=== PATIENT | female | born 1945 | race Caucasian/White ===

== ENCOUNTER 2023-08-11 11:58 | Inpatient (IN) | payer MEDICARE ==
[2023-08-11] VITALS (9 sets, daily range): BP systolic 129–197; BP diastolic 69–118; PULSE 68–88; RESP 15–22; TEMP 97.9; O2SAT 94–98
[~2023-08-11] VITALS: Ht 170.2 cm; Wt 59.5 kg
[2023-08-11] MEDS ORDERED: potassium Cl 20 mEq SR tablet PO ONE (12:20)
[2023-08-11] MEDS ORDERED: potassium CL 10mEq/100ml bag 100 ML IV ONE (12:20)
[2023-08-11] MEDS ORDERED: magnesium 2GM in 50ml NS 50 ML IV ONE (12:20)
[2023-08-11] MEDS ORDERED: magnesium hydroxide 30ml (MOM) UD suspension PO PRN (13:15)
[2023-08-11] MEDS ORDERED: potassium Cl 20 mEq SR tablet PO PRN ×4 (13:15→14:40)
[2023-08-11] MEDS ORDERED: morphine 2 MG/ML inj. syringe IV PRN ×2 (13:15)
[2023-08-11] MEDS ORDERED: potassium Cl 40MEQ/1/2NS 520ml 520 ML IV PRN ×3 (13:15→14:40)
[2023-08-11] MEDS ORDERED: magnesium Cl slow-release 64mg tablet PO PRN (13:15)
[2023-08-11] MEDS ORDERED: ondansetron/PF 4mg/2ml inj IV PRN (13:15)
[2023-08-11] MEDS ORDERED: mag hydrox/Alum hydrox/simeth 30ml oral suspension PO PRN (13:15)
[2023-08-11] MEDS ORDERED: magnesium 2GM in 50ml NS 50 ML IV PRN (13:15)
[2023-08-11] MEDS ORDERED: magnesium 4gm in 100ml NS 100 ML IV PRN (13:15)
[2023-08-11 13:38] LABS: HEMOGLOBIN 11.1 g/dl (12.0-16.0); MEAN CORPUSCULAR HGB CONC 34.2 g/dL (33.0-36.5); MEAN PLATELET VOLUME 9.5 FL (7.4-10.4); RED BLOOD COUNT 3.45 X10'6 (4.20-5.60)
[2023-08-11 13:39] LABS: HEMATOCRIT 32.4 % (35.0-45.0); MEAN CORPUSCULAR HEMOGLOBIN 32.2 PG (27.0-31.0); MEAN CORPUSCULAR VOLUME 94.1 FL (78-98); PLATELET COUNT 248 X10'3 (140-440); RED CELL DISTRIBUTION WIDTH 22.6 % (11.5-14.5); WHITE BLOOD COUNT 10.4 X10'3 (4.5-11.0)
[2023-08-11 13:50] LABS: APTT 30 SECONDS (22-32); INR 1.1 INR; PROTHROMBIN TIME 11.8 SECONDS (9.0-12.0)
[2023-08-11 14:06] LABS: ALANINE AMINOTRANSFERASE 260 U/L (12-78); ALBUMIN 2.2 G/DL (3.4-5.0); ANION GAP 8 (8-16); BLOOD UREA NITROGEN 6 MG/DL (7-18); BUN/CREATININE RATIO 9.4 (10.0-20.0); CHLORIDE 99 MMOL/L (99-107); CREATININE 0.64 MG/DL (0.40-0.90); SODIUM 135 MMOL/L (135-145); TOTAL CARBON DIOXIDE 28.2 MMOL/L (24-32); eCRCL 69 ML/MIN; eGFR 90 ML/MIN
[2023-08-11 14:08] LABS: BILIRUBIN,TOTAL 35.6 MG/DL (0.1-1.0); GLUCOSE 174 MG/DL (70-104); LIPASE 38 U/L (16-77); MAGNESIUM 1.9 MG/DL (1.5-2.4)
[2023-08-11 14:10] LABS: ANISOCYTOSIS 3+; PLATELET ESTIMATE NORMAL; TOTAL CELLS COUNTED 100
[2023-08-11 14:11] LABS: STOMATOCYTES 3+; TARGET CELLS FEW
[2023-08-11 14:19] LABS: ALKALINE PHOSPHATASE 681 IU/L (46-116); ASPARTATE AMINO TRANSFERASE 165 U/L (10-37)
[2023-08-11 14:21] LABS: ALBUMIN/GLOBULIN RATIO 0.7 (1.1-1.5); TOTAL PROTEIN 5.5 G/DL (6.4-8.2)
[2023-08-11] MEDS ORDERED: diphenhydrAMINE 50 mg/ml inj ONE (14:56)
[2023-08-11] MEDS ORDERED: fentaNYL/PF 50MCG/1 ML 2ML syringe ONE (14:56)
[2023-08-11] MEDS ORDERED: MIDAZolam 1 MG/ML 5ML VIAL ONE (14:56)
[2023-08-11] MEDS ORDERED: glucagon, human recombinant 1mg kit ONE (14:56)
[2023-08-11] MEDS ORDERED: iohexol 300mg/ml 100ml inj. ONE (14:57)
[2023-08-11] MEDS ORDERED: LIDOcaine Viscous 15ml cup ONE (14:57)
[2023-08-11] MEDS ORDERED: proCHLORperazine 10 MG/2 ml inj ONE (15:28)
[2023-08-11] MEDS: docusate sod 100mg capsule PO SCH (20:00)
[2023-08-11] MEDS: K and/or MAG REPLACEMENT MC SCH (20:00)
[2023-08-11] MEDS ORDERED: K and/or MAG REPLACEMENT MC SCH (20:00)
[2023-08-11] MEDS ORDERED: NO HOME MEDS (23:59)
[2023-08-12 01:46] VITALS: BP 162/77; PULSE 75; RESP 18; TEMP 98; O2SAT 97
[2023-08-12 06:45] VITALS: BP 136/83; PULSE 60; RESP 16; TEMP 98.1; O2SAT 99
[2023-08-12 07:02] LABS: APTT 30 SECONDS (22-32); INR 1.1 INR; PROTHROMBIN TIME 11.9 SECONDS (9.0-12.0)
[2023-08-12 07:11] LABS: HEMATOCRIT 28.1 % (35.0-45.0); HEMOGLOBIN 9.9 g/dl (12.0-16.0); MEAN CORPUSCULAR HEMOGLOBIN 32.9 PG (27.0-31.0); MEAN CORPUSCULAR VOLUME 93.8 FL (78-98); PLATELET COUNT 219 X10'3 (140-440); RED CELL DISTRIBUTION WIDTH 21.8 % (11.5-14.5)
[2023-08-12 07:17] LABS: ALANINE AMINOTRANSFERASE 224 U/L (12-78); ALBUMIN 1.9 G/DL (3.4-5.0); ALKALINE PHOSPHATASE 653 IU/L (46-116); ANION GAP 8 (8-16); BLOOD UREA NITROGEN 9 MG/DL (7-18); BUN/CREATININE RATIO 12.5 (10.0-20.0); CALCIUM 8.3 MG/DL (8.5-10.1); CHLORIDE 102 MMOL/L (99-107); CREATININE 0.72 MG/DL (0.40-0.90); SODIUM 137 MMOL/L (135-145); TOTAL CARBON DIOXIDE 27.2 MMOL/L (24-32); eCRCL 62 ML/MIN; eGFR 79 ML/MIN
[2023-08-12 07:19] LABS: BILIRUBIN,TOTAL 31.8 MG/DL (0.1-1.0); GLUCOSE 149 MG/DL (70-104); MAGNESIUM 2.3 MG/DL (1.5-2.4)
[2023-08-12 07:30] LABS: ASPARTATE AMINO TRANSFERASE 167 U/L (10-37)
[2023-08-12 07:34] LABS: ALBUMIN/GLOBULIN RATIO 0.7 (1.1-1.5); POTASSIUM 2.6 MMOL/L (3.5-5.1); TOTAL PROTEIN 4.6 G/DL (6.4-8.2)
[2023-08-12 07:48] LABS: PLATELET ESTIMATE NORMAL; TOTAL CELLS COUNTED 100
[2023-08-12 07:49] LABS: ANISOCYTOSIS 3+; STOMATOCYTES 3+; TARGET CELLS FEW
[2023-08-12 08:00] VITALS: RESP 16; O2SAT 96; O2SAT 97
[2023-08-12] MEDS: docusate sod 100mg capsule PO SCH ×2 (08:00→20:00)
[2023-08-12] MEDS: K and/or MAG REPLACEMENT MC SCH (08:00)
[2023-08-12] MEDS ORDERED: mag hydrox/Alum hydrox/simeth 30ml oral suspension PO PRN (11:50)
[2023-08-12 18:00] VITALS: BP 176/69; PULSE 84; RESP 16; TEMP 98.5; O2SAT 97
[2023-08-12 22:00] VITALS: BP 181/73; PULSE 83; RESP 17; TEMP 97.7; O2SAT 95
[2023-08-13 06:00] VITALS: BP 147/56; PULSE 71; RESP 17; TEMP 98; O2SAT 97
[2023-08-13 07:08] LABS: HEMOGLOBIN 9.7 g/dl (12.0-16.0); MEAN CORPUSCULAR HGB CONC 35.2 g/dL (33.0-36.5); RED BLOOD COUNT 2.94 X10'6 (4.20-5.60); WHITE BLOOD COUNT 9.4 X10'3 (4.5-11.0)
[2023-08-13 07:11] LABS: APTT 30 SECONDS (22-32); HEMATOCRIT 27.6 % (35.0-45.0); INR 1.2 INR; MEAN CORPUSCULAR VOLUME 93.7 FL (78-98); PLATELET COUNT 223 X10'3 (140-440); PROTHROMBIN TIME 12.4 SECONDS (9.0-12.0); RED CELL DISTRIBUTION WIDTH 21.2 % (11.5-14.5)
[2023-08-13 07:30] LABS: ALANINE AMINOTRANSFERASE 218 U/L (12-78); ALBUMIN 1.8 G/DL (3.4-5.0); ALKALINE PHOSPHATASE 698 IU/L (46-116); ANION GAP 8 (8-16); BLOOD UREA NITROGEN 9 MG/DL (7-18); CALCIUM 8.2 MG/DL (8.5-10.1); CHLORIDE 99 MMOL/L (99-107); SODIUM 136 MMOL/L (135-145); TOTAL CARBON DIOXIDE 29.1 MMOL/L (24-32)
[2023-08-13 07:48] LABS: ALBUMIN/GLOBULIN RATIO 0.5 (1.1-1.5); ASPARTATE AMINO TRANSFERASE 189 U/L (10-37); BILIRUBIN,TOTAL 31.2 MG/DL (0.1-1.0); BUN/CREATININE RATIO 14.1 (10.0-20.0); CREATININE 0.64 MG/DL (0.40-0.90); GLUCOSE 213 MG/DL (70-104); PHOSPHORUS 1.5 MG/DL (2.3-4.5); TOTAL PROTEIN 5.3 G/DL (6.4-8.2); eCRCL 69 ML/MIN; eGFR 90 ML/MIN
[2023-08-13 07:53] LABS: POTASSIUM 2.5 MMOL/L (3.5-5.1)
[2023-08-13 08:00] VITALS: RESP 17; O2SAT 97
[2023-08-13] MEDS: docusate sod 100mg capsule PO SCH ×2 (08:00→22:57)
[2023-08-13 08:08] LABS: ANISOCYTOSIS 3+; PLATELET ESTIMATE NORMAL; TOTAL CELLS COUNTED 100
[2023-08-13 08:09] LABS: POLYCHROMASIA FEW
[2023-08-13 08:10] LABS: TARGET CELLS FEW
[2023-08-13 08:11] LABS: STOMATOCYTES 3+
[2023-08-13 10:00] VITALS: BP 155/61; PULSE 79; RESP 18; TEMP 98; O2SAT 94
[2023-08-13] MEDS: HYDROcodone/acetaminophen 5mg/325mg tablet PO PRN (12:47)
[2023-08-13] MEDS ORDERED: gabapentin 300mg capsule PO SCH (16:00)
[2023-08-13] MEDS ORDERED: HYDROmorphone 1 mg/ml syringe IV PRN (18:40)
[2023-08-13] MEDS ORDERED: HYDROmorphone inj. 0.5 MG/0.5 ML DISP.SYRIN IV PRN (18:40)
[2023-08-13] MEDS: gabapentin 300mg capsule PO SCH ×2 (19:23→21:00)
[2023-08-13 20:00] VITALS: RESP 12; O2SAT 97
[2023-08-13 22:00] VITALS: BP 187/81; PULSE 75; RESP 12; TEMP 99.2; O2SAT 97
[2023-08-13 22:56] VITALS: BP 172/74; PULSE 76
[2023-08-14] MEDS ORDERED: HYDROcodone/acetaminophen 10/325mg tab PO PRN (07:55)
[2023-08-14] MEDS: docusate sod 100mg capsule PO SCH (08:19)
[2023-08-14] MEDS: HYDROcodone/acetaminophen 5mg/325mg tablet PO PRN (08:19)
[2023-08-14 10:00] VITALS: BP 151/62; PULSE 81; RESP 15; TEMP 98.5; O2SAT 96
== END 2023-08-14 17:45 | disposition hospice, inpatient (51) | DRG 445 ==
LOC: ER 11:59 → ED HOLD 13:18 → EDBEDREQ 20:37 → ORTHO 4S 21:11
PROVIDERS: ADMIT Internal Medicine; ATTEND Internal Medicine
PROC: 0DB98ZX Excision of Duodenum, Via Natural or Artificial Opening Endoscopic, Diagnostic (ICD-10-PCS; principal; 2023-08-11)
PROC: 0FJD8ZZ Inspection of Pancreatic Duct, Via Natural or Artificial Opening Endoscopic (ICD-10-PCS; 2023-08-11)
DX: K83.1 Obstruction of bile duct (principal); C17.0 Malignant neoplasm of duodenum; E44.0 Moderate protein-calorie malnutrition; K83.09 Other cholangitis; R17 Unspecified jaundice; E87.6 Hypokalemia; I10 Essential (primary) hypertension; Z66 Do not resuscitate; E80.6 Other disorders of bilirubin metabolism; G62.9 Polyneuropathy, unspecified; K86.9 Disease of pancreas, unspecified; K86.89 Other specified diseases of pancreas; Z68.20 Body mass index [BMI] 20.0-20.9, adult; Z85.831 Personal history of malignant neoplasm of soft tissue; Z51.5 Encounter for palliative care
CPT/HCPCS: 36415; 43261; 43262; 76700; 80053; 83690; 83735; 84100; 85007; 85025; 85610; 85730; 87081; 88305; 93005; 99152; 99153; 99285; A4620; C1769; G0378; J0780; J1200; J1610; J2250; J2270; J3010; J3475; J3480; J7030; Q9967